=== PATIENT | male | born 1950 | race Caucasian/White ===

== ENCOUNTER 2023-04-01 11:00 | Outpatient (RCR) | payer MEDICARE, SELFPAY ==
--- NOTE | 2023-02-05 12:23 | HP.PTEVAL ---
Patient's Visit Information Visit Information Visit Information: ASIF WRIGHT is a 72 year old M referred to Physical Therapy by Maddie Wolf MD with a diagnosis of Prosthesis. 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 He lives in [place] and after he lost his leg and left him in rehab and now he is in [place]. He is living with 2 of his best friends- getting a house prepared to be handicapped accessible. There will be a ramp to get in/out. He has no accessibility at this point- they have a shower chair and safety bars. He has a lot of phantom limb pain- that comes and goes. He got his prosthetic 2 hours ago- [employer]- He stood in it while he was there. It went okay. Goals: learn to walk without crutches and drive again. He does have both crutches and a FWW. He is able to do all of his transfers indep. He has not had any falls recently. He wears a certified medical dosimetrist during the day and takes it off at night. Sleeps in a regular bed at night- side sleeper. He hates to lay on his belly due to pains in his back. He is not doing any exercises now. PMHx: HTN Meds: amlodopine, Kepra, atenalol, atorvastatin, benazepepril, sertraline Objective Objective: Posture: FH, RS- can correct with verbal cues but does not maintain- in both sitting and standing Transfer: stand pivot transfer indep from w/c to mat and back- sit to stand requires UE from w/c to // bars and FWW Gait: in // bars with prosthetic- step through gait pattern with bilateral UE looking down at prosthesis with SBA for safety (new prosthesis today) with poor heel strike and intermittent locking and unlocking of prosthesis- shortened stride length. ROM: Left: WFL in all planes Right: Hip: Extn: lacking 10 degrees from extension, all other motions WFL Strength: Core: fair, Left LE: 5/5 throughout Right: Hip: 4/5 throughout Flex: Left: HS: moderate, Gastroc: moderate Right: Hip Flexor: severe Goals Goal 1:: Patient will be I with HEP and progression Goal Time Frame: 12-16 Weeks Goal 2:: Patient will ambulate >300 feet with LRD Goal Time Frame: 12-16 Weeks Goal 3:: Patient will SLS on prosthesis for 10 sec without LOB Goal Time Frame: 12-16 Weeks Goal 4:: Patient will asc/desc 8 stairs recip with 1 HR Goal Time Frame: 12-16 Weeks Goal 5:: Patient will report 80% improvement Goal Time Frame: 12-16 Weeks Rehabilitation Potential Physical Therapy Diagnosis: Patient presents with hypomobility- he has decreased ROM, LE and core strength/stabilization, proprioception, flexibility and muscular endurance leading to decreased ability to perform ADL's. Rehabilitation Potential: Good Anticipated Interventions Patient/Client Instruction: Educate patient on: Benefits of Fitness Program Therapeutic Exercise to Include: Strength training, Endurance training, Balance training, Coordination, Agility training, Body mechanics, Postural training, Flexibilty training, Gait and locomotor training, Neuromotor development, Passive ROM, Active ROM, Dynamic Lumbar Stabilization and Scapular Strength/Stabilization For the Purpose of:: To improve muscle performance and motor function Functional Training to Include: ADL Training and Gait training Text: Thank you for the opportunity to evaluate your patient. For Medicare and Medicare HMO plans, please review the plan of care and approve it. It will need to be FAXED BACK to us at [phone] for Medicare purposes. For Medicare only, by signing this I certify the plan of care. Please let me know if there are questions or concerns regarding this plan of care. Physician Signature: Date:
--- NOTE | 2023-03-07 13:30 | HP.PTREVAL_ITS ---
Re-Evaluation Intro: Maddie Wolf MD, It has been my pleasure to treat ASIF WRIGHT over the last 13 visits for Prosthesis. Please see the progress note below for an update on the physical therapy plan of care! Subjective Subjective: Patient reports he is working with [employer] to get the prosthetic to fit correctly. He took two steps at home without the walker once time at home. He is still living with his friends- he is working on moving and was able to stand for 2.5 hours with his walker. No falls. He feels like its feeling like a rock- he is planning to meet with Dr. Carlton. He is going to have him cleared to drive. Objective Objective/Function: Posture: FH, RS- can correct with verbal cues but does not maintain- in both sitting and standing Transfer: he transfer indep with and without his prosthesis Gait: SBA for safety with quad cane- can ambulate with walker mod I for 150 feet- going to clinic office manager for revision today Stairs:asc/desc 8 step to with 2 HR ROM: WFL in all planes bilateral Strength: Core: fair, Left LE: 5/5 throughout Right: Hip: 4+/5 throughout Flex: Left: HS: moderate, Gastroc: moderate Right: Hip Flexor: moderate Plan Plan Plan: 03/07/23: Continue POC- 2-3x a week for 4 weeks- IE: New Prosthesis for Right AKA - Focus on LE and core strength/stabilization, proprioception, gait and stairs Balance/Gait/Functional tests Balance/Special Test Scores Lower Extremity Functional Score: 44 Goals Goals Goal 1:: Patient will be I with HEP and progression Goal Time Frame: 12-16 Weeks Goal Progress: Progressing Goal 2:: Patient will ambulate >300 feet with LRD Goal Time Frame: 12-16 Weeks Goal Progress: Progressing Goal 3:: Patient will SLS on prosthesis for 10 sec without LOB Goal Time Frame: 12-16 Weeks Goal Progress: Progressing Goal 4:: Patient will asc/desc 8 stairs recip with 1 HR Goal Time Frame: 12-16 Weeks Goal Progress: Progressing Goal 5:: Patient will report 80% improvement Goal Time Frame: 12-16 Weeks Goal Progress: Progressing Anticipated Interventions Anticipated Interventions Patient/Client Instruction: Educate patient on: Benefits of Fitness Program Therapeutic Exercise to Include: Strength training, Endurance training, Balance training, Coordination, Agility training, Body mechanics, Postural training, Flexibilty training, Gait and locomotor training, Neuromotor development, P assive ROM, Active ROM, Dynamic Lumbar Stabilization and Scapular Strength/Stabilization For the Purpose of:: To improve muscle performance and motor function Functional Training to Include: ADL Training and Gait training Re-Evaluation Ending Re-evaluation ending: Please do not hesitate to contact me at [phone] by phone or if you have questions or concerns regarding this new plan of care! Sincerely, DAISY RedmondT
--- NOTE | 2023-07-04 08:28 | HP.PT.NRP ---
Patient Information Patient Information: ASIF WRIGHT was seen in my office for initial evaluation on 02/04/23. The following Plan of Care was established for this patient: POC Established Initial Frequency: 2-3x /Week Initial Duration: 4 Weeks Anticipated Interventions Patient/Client Instruction: Educate patient on: Benefits of Fitness Program Therapeutic Exercise to Include: Strength training, Endurance training, Balance training, Coordination, Agility training, Body mechanics, Postural training, Flexibilty training, Gait and locomotor training, Neuromotor development, Passive ROM, Active ROM, Dynamic Lumbar Stabilization and Scapular Strength/Stabilization For the Purpose of:: To improve muscle performance and motor function Functional Training to Include: ADL Training and Gait training Last Seen Last Seen: This patient was last seen in our office . Pertinent comments regarding their Physical therapy will appear below: Patient cancelled all appts- appropriate to be d/c at this time. At this point I will be discontinuing this patient from physical therapy. I would be happy to see this patient again in the future if found appropriate by the physician. Thank you! Jennifer Pike, DAISYT Balance/Gait/Functional tests Balance/Special Test Scores Lower Extremity Functional Score: 54
== END 2023-04-01 19:00 | disposition home or self-care (01) ==
LOC: PT 11:00
PROVIDERS: PCP Family Medicine; Referring Provider Family Medicine; Visit Provider Family Medicine
DX: Z96.651 Presence of right artificial knee joint (principal)
CPT/HCPCS: 97110; 97116; 97163; 97164

== ENCOUNTER → 2023-09-27 | Outpatient (CLI) | payer MEDICARE, SELFPAY | END | disposition home or self-care (01) | PROVIDERS: PCP Family Medicine; Referring Provider Psychiatry & Neurology Neurology; Visit Provider Psychiatry & Neurology Neurology | DX: G40.909 Epilepsy, unspecified, not intractable, without status epilepticus (principal) | CPT/HCPCS: 95819 ==

== ENCOUNTER 2023-10-02 13:45 | Outpatient (RCR) | payer MEDICARE, SELFPAY ==
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
--- NOTE | 2023-10-11 11:02 | HP.OTFCE.D ---
FCE D/C Summary Discharge text: ASIF WRIGHT was seen for a one time visit for an FCE on 10/02/23 and is discharged.
== END 2023-10-02 19:00 | disposition home or self-care (01) ==
LOC: OT 13:45
PROVIDERS: PCP Family Medicine; Referring Provider Family Medicine; Visit Provider Family Medicine
DX: Z89.519 Acquired absence of unspecified leg below knee (principal)
CPT/HCPCS: 97750

== ENCOUNTER → 2023-11-25 | Outpatient (CLI) | payer MEDICARE, SELFPAY ==
[2023-11-25 10:18] LABS: Hematocrit 48.4 % (40-54); Hemoglobin 15.8 g/dL (13.0-16.5); Mean Corp Hgb Conc 32.6 g/dL (32-36); Mean Corpuscular Hgb 30.8 pg (27.0-32.0); Mean Corpuscular Volume 94.3 fL (80-94); Platelet Count 155 K/mm3 (150-450); RBC Distribution Width CV 12.8 % (11.6-14.6); RBC Distribution Width SD 44.4 fl (35.1-43.9); Red Blood Count 5.13 M/mm3 (4.6-6.2); White Blood Count 8.4 K/mm3 (4.4-11.0)
[2023-11-25 11:06] LABS: Vitamin B12 570 pg/mL (211-911)
[2023-11-25 12:20] LABS: AST(SGOT) 15 U/L (15-37); Alanine Aminotransfer ALT/SGPT 20 U/L (16-61); Albumin, Serum 3.7 g/dL (3.2-5.0); Alkaline Phosphatase 61 U/L (45-117); Anion Gap 6 (5-15); BUN 23 mg/dL (7-18); BUN/Creat Ratio 15.6 RATIO (10-20); Calcium,Total 9.2 mg/dL (8.5-10.1); Chloride 112 mmol/L (98-107); Creatinine, Serum 1.47 mg/dL (0.70-1.30); EST Glomerular Filtration Rate 50 mL/min (>60); Est Glom Filt Rate - Afr Amer 61 mL/min (>60); Globulin 3.8 g/dL (2.2-4.2); Glucose 103 mg/dL (74-106); Potassium 3.8 mmol/L (3.5-5.1); Protein, Total 7.5 g/dL (6.4-8.2); Sodium Level 140 mmol/L (136-145); Thyroid Stim Hormone (TSH) 1.24 uIU/mL (0.358-3.74)
[2023-11-30 15:08] LABS: Free Kappa Light Chains 31.2 mg/L (3.3-19.4); Free Lambda Light Chains 18.7 mg/L (5.7-26.3); KEPPRA (LEVETIRACETAM) 28.8 ug/mL (10.0-40.0); Vitamin B1, Thiamine 172.4 nmol/L (66.5-200.0)
== END | disposition home or self-care (01) ==
PROVIDERS: PCP Family Medicine; Referring Provider Psychiatry & Neurology Neurology; Visit Provider Psychiatry & Neurology Neurology
DX: G40.909 Epilepsy, unspecified, not intractable, without status epilepticus (principal); G62.9 Polyneuropathy, unspecified; I10 Essential (primary) hypertension
CPT/HCPCS: 36415; 80053; 80177; 82140; 82607; 82746; 83883; 84425; 84443; 85027

== ENCOUNTER → 2024-03-17 | Outpatient (CLI) | payer MEDICARE, SELFPAY ==
--- NOTE | 2024-03-17 13:51 | ART_ITS ---
Reason For Study: PVD Procedure A bilateral lower extremity continuous wave Doppler with analog waveform analysis and ankle brachial indexes. Left Segmental Pressures Left brachial= 142mmHg. Left posterior tibial artery = 161mmHg. Left dorsalis pedis artery = 147mmHg. The left dorsalis pedis waveforms are triphasic. The left posterior tibial artery waveforms are triphasic. Right Segmental Pressures Right brachial= 143mmHg. Patient has history of right AKA. Indices The left ankle brachial index by the dorsalis pedis is 1.03. The left ankle brachial index by the posterior tibial artery is 1.13. VL/Ankle Brachial Index Interpretation Summary Left USHA 1.13, normal. Doppler/PVR waveforms of the left ankle normal at rest. Prior right above knee amputation. Ordering Physician: Maddie Wolf Referring Physician: MADDIE WOLF MD Performed By: Yaima Byrd RVT
== END | disposition home or self-care (01) ==
PROVIDERS: PCP Family Medicine; Referring Provider Family Medicine; Visit Provider Family Medicine
DX: I73.9 Peripheral vascular disease, unspecified (principal)
CPT/HCPCS: 93922

== ENCOUNTER 2024-06-01 13:00 | Outpatient (RCR) | payer MEDICARE, SELFPAY ==
--- NOTE | 2024-04-27 15:32 | HP.PTEVAL ---
Patient's Visit Information Visit Information Visit Information: ASIF WRIGHT is a 73 year old M referred to Physical Therapy by Maddie Wolf MD with a diagnosis of amputation R with new prosthesis. Date of Evaluation: 04/27/24 Physical Therapist: Axel Lara, DPT, OCS, CSCS Visit Plan Frequency: 2x /Week Duration: 4-6 Weeks Plan: 2x/week for 6 weeks to start for... 1. rollout and stretch R quad and psoas and ensure home stretching. 2. strengthen R hip and core adn progress to I HEP 3. Gait training with new prosthesis with wh walker and cane, also standing weight shift training.Ensure prosthesis management without stump irritation. IE: prone lie to stretch psoas, SLR ext and abduction 5-10 minutes and 3x10 Subjective Subjective: R AKA 09/2022 due to failed vascular surgery. Had mild seizure in september 2022 due to small brain bleed. Has brain specialist who stated he may have got them from the covid shot. No circulation at the time maybe from brain bleed and Xarelto and then needed to take R leg, unable to state why. Put in rehab after leg amputation. Has had temporary leg for the last 18 months but it dug into crotch adn did not lock consistently. Now got computerized leg with battery that locks on its own. Has been getting around with walker for the last year. Has WC at home. Got new leg 3 weeks ago. Can hop with walker. Lives in two story house and crawls up and down steps now. has railing on steps. Lives alone, takes up to 20 minutes to get sleeve on as I have a fat legUsing one sleeve. Transitioning on his own and living on main floor except for bathroom. Has to lfit this leg and twist it to get into car. It digs into crotch when he twists it, Got it form [employer], and will see him again when pins come in. Employed: retired Drives around town currently Spends day : not much, eats meals, computer. No regular exercises Pain phantom pain: Pain Intensity (Out of 10): 0 Pain Intensity Range: Unrated Comment: dull shots now and then Objective Objective: Walks with prosthesis on R Ophelia walker 300 feet x 2 today, hunched FW and short WB through prosthesis. Can walk with Min A with cane short distances but unsteady and much more trendelenberg noted on R. unable to take steps without support. able to stand without support but most of weight through L and unsteady needing CGA to stand. Tends to hunch. steps are with L only using railing up and down and mod I with prosthesis on. dons and doffs prosthesis I today but takes some work to get it on due to tightness. No unusual redness on stump today but only has been in it for a couple hours. [employer] chair I with UE. Transfers bed I, rolling slow and hesitant to end up on tummy due to catch on his back if he stays too long. Hip aROM R 0 and L 4 ext, flexion is WFL B, abduction is 20 B. PROM hip ext similar on R to aROM. knee aROM L WFL, Ankle on left WFL. max tight in psoas and quads on R limiting standing up tall adn hip extension in sidelying and prone. Some pulling into LB. Sensation to gross light touch WNL B LE, Slightly tender distally at stump and lots of soft tissue but tolewrable. UE AROM WFL and strength 4+/5 arms. strength abd R 3+, ext R hip 3, L is 3+, flexion 4, Balance/Special Test Scores Lower Extremity Functional Score: 31 Goals Goal 1:: 5 degrees R hip extension without LB catching to aid in walking normality. Goal Time Frame: 4-6 Weeks Goal 2:: I appropriate HEP for quad and psoas stretching and strengthening of hip and core to aid in management. Goal Time Frame: 4-6 Weeks Goal 3:: Walk in an upright position with wh walker community based distances with Minimal walker WB Goal Time Frame: 4-6 Weeks Goal 4:: Stand and weight shift safely without UE support to aid in ADLs Goal Time Frame: 4-6 Weeks Goal 5:: walk 200 feet with cane without trendelenberg or hunching in PT clinic. Goal Time Frame: 4-6 Weeks Rehabilitation Potential Physical Therapy Diagnosis: unsteeady gait with new prosthesis limiting mobility. Rehabilitation Potential: Fair Anticipated Interventions Patient/Client Instruction: Educate patient on: Condition and Plan of Care For the Purpose of:: To decrease pain, To increase ROM, To improve nutrient delivery to tissue, To improve muscle performance and motor function and To increase tolerance to activity/condition/position Therapeutic Exercise to Include: Strength training, Postural training, Flexibilty training, Gait and locomotor training, Passive ROM and Active ROM For the Purpose of:: To decrease pain, To increase ROM, To improve nutrient delivery to tissue, To increase oxygenation perfusion, To improve muscle performance and motor function and To improve gait and locomotor functions Functional Training to Include: Gait training For the Purpose of:: To improve gait and locomotor functions Manual Therapy Techniques to Include: Passive ROM and Soft tissue mobilization For the Purpose of:: To increase ROM and To improve gait and locomotor functions Comment: prosthesis management For the Purpose of:: To decrease pain, To decrease swelling/inflammation and To improve nutrient delivery to tissue Text: Thank you for the opportunity to evaluate your patient. For Medicare and Medicare HMO plans, please review the plan of care and approve it. It will need to be FAXED BACK to us at [phone] for Medicare purposes. For Medicare only, by signing this I certify the plan of care. Please let me know if there are questions or concerns regarding this plan of care. Physician Signature: Date:
--- NOTE | 2024-07-20 09:22 | HP.PT.NRP ---
Patient Information Patient Information: ASIF WRIGHT was seen in my office for initial evaluation on 04/27/24. The following Plan of Care was established for this patient: POC Established Initial Frequency: 2x /Week Initial Duration: 4-6 Weeks Anticipated Interventions Patient/Client Instruction: Educate patient on: Condition and Plan of Care For the Purpose of:: To decrease pain, To increase ROM, To improve nutrient delivery to tissue, To improve muscle performance and motor function and To increase tolerance to activity/condition/position Therapeutic Exercise to Include: Strength training, Postural training, Flexibilty training, Gait and locomotor training, Passive ROM and Active ROM For the Purpose of:: To decrease pain, To increase ROM, To improve nutrient delivery to tissue, To increase oxygenation perfusion, To improve muscle performance and motor function and To improve gait and locomotor functions Functional Training to Include: Gait training For the Purpose of:: To improve gait and locomotor functions Manual Therapy Techniques to Include: Passive ROM and Soft tissue mobilization For the Purpose of:: To increase ROM and To improve gait and locomotor functions Comment: prosthesis management For the Purpose of:: To decrease pain, To decrease swelling/inflammation and To improve nutrient delivery to tissue Last Seen Last Seen: This patient was last seen in our office . Pertinent comments regarding their Physical therapy will appear below: At this point I will be discontinuing this patient from physical therapy. I would be happy to see this patient again in the future if found appropriate by the physician. Thank you! Axel Lara, DPT, OCS, CSCS Balance/Gait/Functional tests Balance/Special Test Scores Lower Extremity Functional Score: 31
--- NOTE | 2024-07-20 09:23 | HP.PT.NRP ---
Patient Information Patient Information: ASIF WRIGHT was seen in my office for initial evaluation on 04/27/24. The following Plan of Care was established for this patient: POC Established Initial Frequency: 2x /Week Initial Duration: 4-6 Weeks Anticipated Interventions Patient/Client Instruction: Educate patient on: Condition and Plan of Care For the Purpose of:: To decrease pain, To increase ROM, To improve nutrient delivery to tissue, To improve muscle performance and motor function and To increase tolerance to activity/condition/position Therapeutic Exercise to Include: Strength training, Postural training, Flexibilty training, Gait and locomotor training, Passive ROM and Active ROM For the Purpose of:: To decrease pain, To increase ROM, To improve nutrient delivery to tissue, To increase oxygenation perfusion, To improve muscle performance and motor function and To improve gait and locomotor functions Functional Training to Include: Gait training For the Purpose of:: To improve gait and locomotor functions Manual Therapy Techniques to Include: Passive ROM and Soft tissue mobilization For the Purpose of:: To increase ROM and To improve gait and locomotor functions Comment: prosthesis management For the Purpose of:: To decrease pain, To decrease swelling/inflammation and To improve nutrient delivery to tissue Last Seen Last Seen: This patient was last seen in our office 06/01/24. Pertinent comments regarding their Physical therapy will appear below: Pt seen 10 visits of POC but cancelled the remaining without rescheduling. At this point, it has been over 6 weeks and I will discontinue due to non attendance. At this point I will be discontinuing this patient from physical therapy. I would be happy to see this patient again in the future if found appropriate by the physician. Thank you! Axel Lara, DPT, OCS, CSCS Balance/Gait/Functional tests Balance/Special Test Scores Lower Extremity Functional Score: 31
== END 2024-06-01 19:00 | disposition home or self-care (01) ==
LOC: PT 13:00
PROVIDERS: PCP Family Medicine; Referring Provider Family Medicine; Visit Provider Family Medicine
DX: Z89.519 Acquired absence of unspecified leg below knee (principal)
CPT/HCPCS: 97110; 97162

== ENCOUNTER → 2024-07-30 | Outpatient (CLI) | payer OTHER, MEDICARE, SELFPAY ==
[2024-07-30 18:24] LABS: Anion Gap 7 (5-15); BUN 19 mg/dL (7-18); BUN/Creat Ratio 12.4 RATIO (10-20); Calcium,Total 9.9 mg/dL (8.5-10.1); Chloride 113 mmol/L (98-107); Creatinine, Serum 1.53 mg/dL (0.70-1.30); EST Glomerular Filtration Rate 48 mL/min (>60); Est Glom Filt Rate - Afr Amer 58 mL/min (>60); Glucose 96 mg/dL (74-106); Sodium Level 143 mmol/L (136-145)
[2024-08-04 14:08] LABS: Albumin 3.8 g/dL (2.9-4.4); Alpha-1-Globulins 0.3 g/dL (0.0-0.4); Alpha-2-Globulins 0.7 g/dL (0.4-1.0); Gamma Globulin 1.4 g/dL (0.4-1.8); IMMUNOFIXATION RESULT,S Comment: (.); Immunoglobulin A 198 mg/dL (61-437); Immunoglobulin G 1308 mg/dL (603-1613); Immunoglobulin M 313 mg/dL (15-143); KEPPRA (LEVETIRACETAM) 37.6 ug/mL (10.0-40.0)
== END | disposition home or self-care (01) ==
LOC: MTLAB 14:16
PROVIDERS: PCP Family Medicine; Referring Provider Psychiatry & Neurology Neurology; Visit Provider Psychiatry & Neurology Neurology
DX: G40.909 Epilepsy, unspecified, not intractable, without status epilepticus (principal); N28.9 Disorder of kidney and ureter, unspecified; G62.9 Polyneuropathy, unspecified
CPT/HCPCS: 36415; 80048; 80177; 82140; 82784; 84165; 86334; 86335

== ENCOUNTER → 2025-05-24 | Outpatient (CLI) | payer MEDICARE, SELFPAY ==
[2025-05-24 15:02] LABS: Hematocrit 48.5 % (40-54); Hemoglobin 15.9 g/dL (13.0-16.5); Mean Corp Hgb Conc 32.8 g/dL (32-36); Mean Corpuscular Volume 94.9 fL (80-94); Mean Platelet Vol. 11.8 fl (6.2-12.0); Platelet Count 169 K/mm3 (150-450); RBC Distribution Width CV 12.8 % (11.6-14.6); RBC Distribution Width SD 44.5 fl (35.1-43.9); Red Blood Count 5.11 M/mm3 (4.6-6.2); White Blood Count 8.3 K/mm3 (4.4-11.0)
[2025-05-24 15:39] LABS: AST(SGOT) 19 U/L (<=37); Alanine Aminotransfer ALT/SGPT 15 U/L (<=46); Albumin, Serum 4.2 g/dL (3.4-4.8); Alkaline Phosphatase 69 U/L (40-129); Anion Gap 13 (5-15); BUN 24 mg/dL (4-19); BUN/Creat Ratio 16.1 RATIO (10-20); Calcium,Total 9.4 mg/dL (7.6-11.0); Carbon Dioxide 21.4 mmol/L (21.0-32.0); Chloride 110 mmol/L (98-108); Cholesterol 116 mg/dL (<=200); Globulin 3.3 g/dL (2.2-4.2); Glucose 108 mg/dL (70-99); Low Density Lipoprotein Calc. 56 mg/dL; PSA,Total - Annual Screen 1.30 ng/mL (0.02-4.00); Potassium 3.9 mmol/L (3.3-5.1); Triglycerides 61 mg/dL; Very Low Density Lipoprotein 12 mg/dL (5-40); cholesterol:hdl ratio screen 2.47
== END | disposition home or self-care (01) ==
PROVIDERS: PCP Family Medicine; Referring Provider Family Medicine; Visit Provider Family Medicine
DX: Z12.5 Encounter for screening for malignant neoplasm of prostate (principal); I10 Essential (primary) hypertension; E78.5 Hyperlipidemia, unspecified
CPT/HCPCS: 36415; 80053; 80061; 84153; 85027; G0103

== ENCOUNTER → 2025-06-24 | Outpatient (CLI) | payer MEDICARE, SELFPAY ==
[2025-06-24 16:02] LABS: Ammonia 31.3 umol/L (16-60)
[2025-07-02 10:07] LABS: Albumin 3.7 g/dL (2.9-4.4); Gamma Globulin 1.5 g/dL (0.4-1.8); Immunoglobulin A 221 mg/dL (61-437); Immunoglobulin G 1298 mg/dL (603-1613); Immunoglobulin M 324 mg/dL (15-143); KEPPRA (LEVETIRACETAM) 19.1 ug/mL (10.0-40.0); PROEL- TOTAL PROTEIN 7.3 g/dL (6.0-8.5)
== END | disposition home or self-care (01) ==
LOC: MTLAB 13:13
PROVIDERS: PCP Family Medicine; Referring Provider Psychiatry & Neurology Neurology; Visit Provider Psychiatry & Neurology Neurology
DX: G40.909 Epilepsy, unspecified, not intractable, without status epilepticus (principal); G62.9 Polyneuropathy, unspecified; R73.9 Hyperglycemia, unspecified
CPT/HCPCS: 36415; 80177; 82140; 82784; 83036; 84165; 86334; 86335